=== PATIENT | male | born 1995 | race Caucasian/White ===

== ENCOUNTER 2022-12-28 12:05 | Emergency (ER) | payer BC, OTHER ==
[~2022-12-28] VITALS: Ht 188 cm; Wt 69.2 kg
[2022-12-28 15:27] VITALS: BP 114/57; TEMP 97.6; O2SAT 100
== END 2022-12-28 15:28 | disposition home or self-care (01) ==
LOC: M ED 12:05
DX: R19.5 Other fecal abnormalities (principal); Z88.2 Allergy status to sulfonamides; Z88.1 Allergy status to other antibiotic agents